=== PATIENT | male | born 1940 | race Hispanic/Latino ===

== ENCOUNTER → 2018-12-01 | Outpatient (CLI) | payer MEDICARE ==
--- NOTE | 2018-12-01 15:26 | Diagnostic Imaging Report ---
EXAMINATION: Scrotal ultrasound CLINICAL INDICATION: Spermatocele. COMPARISON: None. TECHNIQUE: Grayscale and color Doppler evaluation of the scrotum was performed in transverse and longitudinal planes. FINDINGS: The right testicle measures 3.2 x 1.5 x 2.6 cm. There are no masses or calcifications.. The right epididymis measures 0.8 x 0.7 x 0.7 cm. No nodules or masses.. There is no evidence of right hydrocele or varicocele. There is normal flow to the right testicle, without evidence of torsion. The left testicle measures 3.7 x 1.6 x 2.6 cm. There are no masses or calcifications.. The left epididymis measures 1.2 x 0.7 x 0.8 cm. 2 anechoic lesions compatible with epididymal head cysts or spermatoceles are identified, measuring 6 mm x 4 mm x 5 mm and 5 mm x 4 mm x 6 mm. There is no evidence of left hydrocele or varicocele. There is normal flow to the left testicle without evidence of torsion. The scrotum has a normal appearance, without focal lesions. Impression: Small left epididymal head cysts versus spermatoceles. Unremarkable sonographic appearance of the testes. Signed by: Dr. Chandana Martin M.D. on 12/01/2018 3:23 PM
== END ==
LOC: US 12:27
PROVIDERS: ATTEND Urology
DX: N43.40 Spermatocele of epididymis, unspecified (principal)
CPT/HCPCS: 76870; 93976